=== PATIENT | female | born 1985 | race American Indian/Alaskan Native ===

== ENCOUNTER 2017-11-17 15:11 | Emergency (ER) | payer SELFPAY ==
[2017-11-17 16:06] VITALS: BP 110/62
[2017-11-17 17:46] LABS: HCG Qualitative,Urine Negative (Negative)
[2017-11-17 17:58] LABS: Bacteria,Urine 2+ /HPF (Negative); Bilirubin,Urine NEG (Negative); Blood,Urine LG (Negative); Color,Urine Amber (Yellow); Mucus,Urine 3+ /HPF; Sperm,Urine 1+ /HPF (NP); Urobilinogen,Urine < 2.0 mg/dL (<2.0)
[2017-11-17 18:04] LABS: RBC,Urine > 182.0 /HPF (0.0-6.0)
== END 2017-11-17 23:09 | disposition left against medical advice (07) ==
LOC: ED 15:11
DX: R11.11 Vomiting without nausea (principal); Z53.21 Procedure and treatment not carried out due to patient leaving prior to being seen by health care provider
CPT/HCPCS: 81001; 81025

== ENCOUNTER 2018-12-01 11:30 | Inpatient (IN) | payer BC, OTHER ==
[2018-12-02] MEDS ORDERED: BICITRA ORAL LIQD 30ML PO ONE ×2 (16:50→17:46)
[2018-12-02] MEDS ORDERED: METOCLOPRAMIDE 10 MG/2 ML INJ IV ONE ×2 (16:50→17:46)
[2018-12-02] MEDS ORDERED: EMLA CREAM 5 GM TP PRN (16:50)
[2018-12-02] MEDS ORDERED: FAMOTIDINE 20 MG/2 ML INJ IV ONE ×2 (16:50→17:46)
[2018-12-02] MEDS ORDERED: ceFAZolin/Water 2 GM/20 ML 2 GM/20 ML SYRINGE IV NR ×2 (17:00→18:00)
[2018-12-02] MEDS ORDERED: OXYTOCIN 20 UNIT/1000ML DRIP 20 UNITS/1,000 ML BAG IV SCH ×3 (17:00→23:48)
[2018-12-02] MEDS ORDERED: LACTATED RINGERS 1,000 ML IV SCH ×2 (17:00→18:00)
--- NOTE | 2018-12-02 17:08 | History and Physical Report ---
History of Present Illness Date of examination: 12/02/18 Date of admission: 12/02/18 16:33 Chief complaint: SROM History of present illness: Past History : 4 Term Births: 3 Premature Births: 0 Living Children: 3 Para: 3 Prev : 3 Prev. attempt? 0 Aborta: 0 Elect. Ab: 0 Spont. Ab: 0 Ectopics: 0 # 1 Delivery date: 2010 Weeks Gestation: term Delivery type: Delivery location: [place] Inf[place] Sex: Male weight: 7-0 Comments: maternal/ distress # 2 Delivery date: 2012 Weeks Gestation: term Delivery type: Delivery location: [place] Sex: Male weight: 7-0 Comments: scheduled repeat # 3 Delivery date: 2013 Weeks Gestation: term Delivery type: Delivery location: [place] Sex: Female weight: 7-0 Family History Summary: No Known Family History - Entered On: 07/22/2018 Social History: Patient is single Smoking History: Patient has never smoked. Past Medical History: Negative Past Medical History Past Surgical History: X 3 Past Medical History Surgery (Non-java web architect): X 3 Abnormal PAP: negative MING Exposure: negative Infertility: negative Uterine Anomaly: negative Uterine Surgery (not C/S): negative Other Gynecologic Problems: negative Social Hx: Patient is single Smoking History: Patient has never smoked. Infection History Hx of STD: none HIV Risk Eval: low risk Hepatitis B Risk Eval: low risk Personal hx. of genital herpes: no Partner hx. of genital herpes: no Rash, Viral, or Febrile illness since last LMP? no Varicella/Chicken Pox Status: Previous Disease TB Risk: no Genetic History ADVANCED MATERNAL AGE Congenital Heart Defect: Mom: no Dad: no Sarah Disease: Mom: no Dad: no Thalassemia Mom: no Dad: no Neural Tube Defect Mom: no Dad: no Down's Syndrome Mom: no Dad: no Eliezer-Sachs Mom: no Dad: no Sickle Cell Disease/Trait Mom: no Dad: no Hemophilia Mom: no Dad: no Muscular Dystrophy Mom: no Dad: no Cystic Fibrosis Mom: no Dad: no Amina Chorea Mom: no Dad: no Mental Retardation Mom: no Dad: no Fragile X Mom: no Dad: no Other Genetic/Chromosomal Disorder Mom: no Dad: no Child w/other defect Mom: no Dad: no Enviromental Exposures Xray Exposure: no Medication, drug, or alcohol use since LMP: no Chemical/Other Exposure: no Exposure to Cat Liter: no Hx of Parvovirus (Fifth Disease): no Occupational Exposure to Children: none Comments: works in a halfway Active Medications (reviewed today): VITAMINS TABLET ( VIT-FE FUMARATE-FA TABS) Current Allergies (reviewed today): No known allergies Past History - Obstetrical History Expected Date of Delivery: 12/11/18 Actual Gestation: 38 Week(s) 5 Day(s) : 4 Medications and Allergies Allergies Allergy/AdvReac Type Severity Reaction Status Date / Time No Known Allergies Allergy Verified 07/07/18 12:15 Active Meds: Active Medications Citric Acid/Sodium Citrate (Bicitra) 30 ml PO ONCE ONE Stop: 12/02/18 16:51 Famotidine (Pepcid) 20 mg IV ONCE ONE Stop: 12/02/18 16:51 Oxytocin/Sodium Chloride (Pitocin/Ns 20 Unit/1000ml Drip) 20 units in 1,000 mls @ 0 mls/hr IV TITR ELAINE Lactated Ringer's (Lactated Ringers) 1,000 mls @ 2,250 mls/hr IV PREOP ELAINE Stop: 12/03/18 17:27 Cefazolin Sodium (Ancef/Sterile Water 2 Gm/20 Ml) 2 gm in 20 mls @ 80 mls/hr IV PREOP NR; Protocol Lidocaine/Prilocaine (Emla) 1 applic TP ONCE PRN PRN Reason: for noble catheter insertion Metoclopramide HCl (Reglan) 10 mg IV ONCE ONE Stop: 12/02/18 16:51 Review of Systems All systems: negative Genitourinary: leakage of fluid - Physical Exam Breasts: Positive: deferred Cardiovascular: Regular rate Lungs: Positive: Normal air movement Abdomen: Positive: other Genitourinary (Female): Positive: perineal/vulvar lesions (skin tag (R) labia) Vagina: Positive: other (+pool) Anus/Rectum: Positive: normal perianal skin Extremities: Positive: normal Results All other labs normal. Assessment and Plan - Patient Problems (1) 38 weeks gestation of Current Visit: Yes Status: Acute (2) Maternal care due to uterine scar from previous surgery Current Visit: Yes Status: Acute Plan to address problem: Patient agrees to proceed with delivery today, declines sterilization. Risks and consents reviewed, she voiced understanding (3) PROM (premature rupture of membranes) Current Visit: Yes Status: Acute (4) Advanced maternal age (AMA) in Current Visit: Yes Status: Acute (5) Abnormal placenta Current Visit: Yes Status: Acute (6) Polyhydramnios Current Visit: Yes Status: Acute
[2018-12-02 18:20] LABS: Basophils % (Auto) 0.4 % (0.0-1.8); Eosinophils # (Auto) 0.1 K/mm3 (0.0-0.4); Eosinophils % (Auto) 1.3 % (0.0-4.3); Hematocrit 42.8 % (30.3-42.9); Hemoglobin 14.4 gm/dl (10.1-14.3); Lymphocytes # (Auto) 1.5 K/mm3 (1.2-5.4); Lymphocytes % (Auto) 15.5 % (13.4-35.0); Mean Corpuscular HGB Conc 34 % (30-34); Mean Corpuscular Volume 84 fl (79-97); Monocytes # (Auto) 0.8 K/mm3 (0.0-0.8); Monocytes % (Auto) 7.8 % (0.0-7.3); Platelet Count 143 K/mm3 (140-440); Red Blood Count 5.08 M/mm3 (3.65-5.03); Red Cell Distribution Width 12.9 % (13.2-15.2)
[2018-12-02 18:24] LABS: Bilirubin,Urine NEG (Negative); Blood,Urine NEG (Negative); Color,Urine Yellow (Yellow); Protein,Urine <15 mg/dL mg/dL (Negative); Urobilinogen,Urine < 2.0 mg/dL (<2.0)
[2018-12-02] MEDS ORDERED: NALOXONE 0.4 MG/1 ML INJ IV PRN ×2 (18:36→23:48)
[2018-12-02] MEDS ORDERED: ONDANSETRON 4 MG/2 ML INJ IV PRN ×2 (18:36→23:48)
[2018-12-02] MEDS ORDERED: diphenhydrAMINE 50 MG/ML VIAL IV PRN (18:36)
[2018-12-02] MEDS ORDERED: HYDROmorphone 1 MG/1 ML INJ IV PRN ×2 (18:36)
--- NOTE | 2018-12-02 18:47 | Anesthesia Consultation ---
Anesthesia Consult and Med Hx Date of service: 12/02/18 - Airway Anesthetic Teeth Evaluation: Good ROM Head & Neck: Adequate Mental/Hyoid Distance: Adequate Mallampati Class: Class II Intubation Access Assessment: Probably Good - Pulmonary Exam CTA: Yes - Cardiac Exam Cardiac Exam: RRR - Pre-Operative Health Status ASA Pre-Surgery Classification: ASA2 Proposed Anesthetic Plan: Spinal - Pulmonary Hx Smoking: No Hx Asthma: No Hx Respiratory Symptoms: No SOB: No COPD: No Home Oxygen Therapy: No Hx Pneumonia: No Hx Sleep Apnea: No - Cardiovascular System Hx Hypertension: No Hx Coronary Artery Disease: No Hx Heart Attack/AMI: No Hx Angina: No Hx Percutaneous Transluminal Coronary Angioplasty (PTCA): No Hx Cardia Arrhythmia: No Hx Pacemaker: No Hx Internal Defibrillator: No Hx Valvular Heart Disease: No Hx Heart Murmur: No Hx Peripheral Vascular Disease: No - Central Nervous System Hx Neuromuscular Disorder: No Hx Seizures: No CVA: No Hx Back Pain: No Hx Psychiatric Problems: No - Gastrointestinal Hx Ulcer: No Hx Gastroesophageal Reflux Disease: Yes - Endocrine Hx Renal Disease: No Hx End Stage Renal Disease: No Hx Cirrhosis: No Hx Liver Disease: No Hx Insulin Dependent Diabetes: No Hx Non-Insulin Dependent Diabetes: No Hx Thyroid Disease: No Hx Hypothyroidism: No Hx Hyperthyroidism: No - Hematic Hx Anemia: No Hx Sickle Cell Disease: No - Other Systems Hx Alcohol Use: No Hx Substance Use: No Hx Cancer: No Hx Obesity: No
--- NOTE | 2018-12-02 18:48 | Anesthesia Day of Surgery ---
Anesthesia Day of Surgery - Day of Surgery Patient Examined: Yes Patient H&P Reviewed: Yes Patient is NPO: Yes Beta Blockers: No Cardiac Clearance: No Pulmonary Clearance: No Randy's Test: N/A
[2018-12-02] MEDS ORDERED: DEXMEDETOMIDINE 200 MCG/2 ML VIAL IV ONE (19:20)
[2018-12-02] MEDS ORDERED: PHENYLEPHRINE/NS 1,000 MCG/10 ML SYRINGE (OR USE) IV ONE (20:02)
[2018-12-02] MEDS ORDERED: KETOROLAC 30 MG/1 ML INJ ONE (20:40)
[2018-12-02] MEDS ORDERED: ONDANSETRON 4 MG/2 ML INJ ONE (20:40)
--- NOTE | 2018-12-02 21:10 | Post Operative Note ---
Pre-op diagnosis: IUP@38, SROM, AMA, prev C/S Post-op diagnosis: same Procedure: LTCS Anesthesia: epidural Surgeon: PABLITO JHA Rn Imcu: JANESSA TOVAR Estimated blood loss: other (600mL) Pathology: list (placenta) Specimen disposition: to lab Condition: stable Disposition: PACU
[2018-12-02] MEDS ORDERED: WITCH HAZEL/ GLYCERIN PAD TP PRN (23:48)
[2018-12-02] MEDS ORDERED: PROMETHAZINE 25 MG RECT SUPP PR PRN (23:48)
[2018-12-02] MEDS ORDERED: ACETAMINOPHEN 325 MG TAB PO PRN (23:48)
[2018-12-02] MEDS ORDERED: LANOLIN/ZINC/DIMETHICONE (LANSINOH) 7 GM TP PRN (23:48)
[2018-12-02] MEDS ORDERED: MORPHINE 2 MG/1 ML INJ IV PRN (23:48)
[2018-12-02] MEDS ORDERED: ACETAMINOPHEN 650 MG RECT SUPP PR PRN (23:48)
[2018-12-02] MEDS ORDERED: MORPHINE 4 MG/1 ML INJ IV PRN (23:48)
[2018-12-03] MEDS: ceFAZolin/NS 1 GM/50 ML 1 GM/50 ML BAG IV SCH ×2 (02:41→09:32)
[2018-12-03] MEDS: KETOROLAC 30 MG/1 ML INJ IV SCH ×3 (02:54→16:26)
[2018-12-03] MEDS: D5W/LACTATED RINGERS 1,000 ML IV SCH ×2 (02:55→10:25)
[2018-12-03] MEDS ORDERED: TETANUS,DIPH,PERTUSS(ACELL) VACCINE 0.5 ML SYRINGE IM ONE (06:00)
--- NOTE | 2018-12-03 06:27 | Progress Note ---
Assessment and Plan - Patient Problems (1) delivery delivered Onset Date: ~12/03/18 Current Visit: Yes Status: Acute Plan to address problem: Pt resting No c/o voiced VSS FF @ umb Lochia mod Dressing D&I H&H pending Doing well s/p repeat c/s P: continue pathway Advance diet and activity as tolerated. Subjective - Subjective Date of service: 12/03/18 (pt in good spirits) Principal diagnosis: 12hr s/p section Patient reports: voiding normally, pain well controlled [place]: doing well Objective - Vital Signs Latest vital signs: Vital Signs Temp Temp Pulse Resp BP BP Pulse Ox 12/03/18 04:54 98.8 F 75 20 110/65 98 12/02/18 22:50 98.4 F 68 18 108/65 97 12/02/18 22:15 74 16 108/52 100 12/02/18 22:00 69 17 96/55 100 12/02/18 21:47 98.0 F 138 H 46 H 12/02/18 21:45 74 21 110/51 100 12/02/18 21:30 71 20 112/43 100 12/02/18 21:25 71 20 107/40 100 12/02/18 21:20 70 20 109/39 100 12/02/18 21:15 97.9 F 70 19 110/33 100 12/02/18 18:25 114 H 99 12/02/18 18:20 93 H 98 12/02/18 18:15 92 H 98 12/02/18 18:10 93 H 98 12/02/18 18:05 90 98 12/02/18 18:00 95 H 98 12/02/18 17:55 95 H 98 12/02/18 17:50 94 H 98 12/02/18 17:45 95 H 98 12/02/18 17:40 91 H 99 12/02/18 17:38 91 H 126/79 12/02/18 17:35 93 H 98 12/02/18 17:30 93 H 99 12/02/18 17:25 98 H 98 12/02/18 17:20 96 H 99 12/02/18 17:09 98.1 F 20 Intake and Output 12/02/18 12/02/18 12/03/18 14:59 22:59 06:59 Intake Total 1840 120 Output Total 500 600 Balance 1340 -480 Intake: IV 1800 Oral 120 Oral Amount (ml) 40 Enfamil [place] 40 Output: Urine 500 600 Indwelling Catheter 600 Uretheral ([place]) 100 Other: Total, Intake Amount 120 Total, Output Amount 600 # Voids Diaper 1 Weight 169 lb Estimated Blood Loss 600 Patient Weight 12/03/18 06:59 Weight 169 lb - Exam Breasts: Present: normal Cardiovascular: Present: Regular rate Lungs: Present: Normal air movement Abdomen: Present: normal appearance, soft Uterus: Present: normal, fundal height at umbilicus Extremities: Present: normal Incision: Present: normal, dry, intact, dressed - Labs Labs: Abnormal lab results 12/02/18 Range/Units 17:30 RBC 5.08 H (3.65-5.03) M/mm3 Hgb 14.4 H (10.1-14.3) gm/dl RDW 12.9 L (13.2-15.2) % [place] % (Auto) 7.8 H (0.0-7.3) % Seg Neutrophils % 75.0 H (40.0-70.0) %
[2018-12-03 09:57] LABS: Hematocrit 37.2 % (30.3-42.9); Hemoglobin 12.5 gm/dl (10.1-14.3)
--- NOTE | 2018-12-03 10:40 | Operative Report ---
PREOPERATIVE DIAGNOSES: Intrauterine at 38 weeks; spontaneous rupture of membrane, unknown amount of time; previous x 3; and advanced maternal age. POSTOPERATIVE DIAGNOSES: Intrauterine at 38 weeks; spontaneous rupture of membrane, unknown amount of time; previous x 3; and advanced maternal age. PROCEDURE: Low transverse section. SURGEON: Yokasta Spivey MD WELT TRIMMING MACHINE OPERATOR: Seamus Jacobo MD ANESTHESIA: Epidural. COMPLICATIONS: None. ESTIMATED BLOOD LOSS: 600 mL. ANESTHESIOLOGIST: Dr. Whitney. DESCRIPTION OF PROCEDURE: After risks, benefits, complications, consequences and alternatives of this procedure were discussed with the patient, she voiced the understanding and desired to proceed. She was taken to the OR, where epidural anesthesia was placed. She was placed in the left lateral tilt position and prepped and draped in the usual sterile fashion. Timeout was performed and once the appropriate level of the anesthesia was noted, a Pfannenstiel incision was made through a previous incision, which was incised and extended in a lateral direction. The fascia was incised and on dissecting the fascia laterally, no obvious evidence of rectus muscles was noted. The fascia was grasped with Mora clamps and elevated, the peritoneum that was attached to the fascia was carefully dissected away in both the superior and inferior direction, the midline was entered bluntly, an extra large Darien retractor was placed with the bladder blade in place, the vesicouterine fold was incised with a blunt dissection, the bladder flap was created, a transverse incision was made in the lower uterine segment and extended in a superior lateral direction with a finger fractionation. Minimum amount of a clear fluid was noted. was delivered from the complete breech position with spontaneous cry and excellent tone. Cord was doubly clamped and cut and was given to the resuscitation team present. The placenta was manually extracted and sent to pathology. The uterus was exteriorized and cleaned of any further products of conception or placental tissue. The incision was reapproximated using 0 Vicryl in a running and locking stitch followed by further suture of 0 Vicryl in interrupted [id number] fashion for hemostasis. Once hemostasis was noted, the uterus was allowed back in the pelvic cavity. Pelvis was irrigated with warm normal saline. The Darien retractor was removed and Tisseel was applied to the incision as well as Interceed was placed in the anterior aspect of the uterus. Once hemostasis was noted, as mentioned previously, no obvious evidence of the rectus muscles were noted. Therefore, peritoneum was reapproximated using 0 Vicryl in 3 interrupted stitches. Then, the fascia was reapproximated using 0 Vicryl in a simple running stitch. Once hemostasis was noted, the skin was reapproximated using 4-0 Vicryl in subcuticular manner. The patient tolerated the procedure well and was taken to recovery room in stable condition. [facility]# [id number] CHUCK/DANIS
[2018-12-03] MEDS ORDERED: FLU VACC QUAD 2019-20 (3 YR UP)/PF 60 MCG/0.5 ML SYRINGE IM ONE (12:00)
[2018-12-03] MEDS: oxyCODONE /ACETAMINOPHEN 5-325MG TAB PO PRN (13:49)
[2018-12-03] MEDS: MAGNESIUM HYDROXIDE (MOM) ORAL LIQD UDC PO PRN (16:53)
[2018-12-04] MEDS: oxyCODONE /ACETAMINOPHEN 5-325MG TAB PO PRN ×3 (00:23→22:26)
[2018-12-04] MEDS ORDERED: KETOROLAC 30 MG/1 ML INJ ONE (00:36)
[2018-12-04] MEDS: KETOROLAC 30 MG/1 ML INJ IV SCH (00:44)
[2018-12-04] MEDS: IBUPROFEN 800 MG TAB PO PRN ×3 (06:47→17:55)
--- NOTE | 2018-12-04 07:58 | Progress Note ---
Assessment and Plan patient doing well, getting up to shower. Incision dressed - rn to remove after shower. Pain well controlled. lochia scant, fundus firm, H&H 12.5/37.2. - Patient Problems (1) delivery delivered Onset Date: ~12/03/18 Current Visit: Yes Status: Acute Plan to address problem: Continue postop pathway encouraged advance in activity as tolerated encouraged continued . Subjective - Subjective Date of service: 12/04/18 Principal diagnosis: postop day #2 s/p repeat c/s Patient reports: appetite normal, voiding normally, pain well controlled, flatus, ambulating normally, no dizzy ambulation, no nauseated : doing well, nursing well Objective - Vital Signs Latest vital signs: Vital Signs Temp Pulse Resp BP BP Pulse Ox 12/04/18 01:08 98.5 F 79 20 113/66 100 12/03/18 20:19 98.2 F 90 20 105/58 99 12/03/18 15:59 98.0 F 67 20 104/61 99 12/03/18 12:55 98.5 F 69 20 104/61 98 12/03/18 08:27 98.8 F 69 20 110/65 97 Intake and Output 12/03/18 12/03/18 12/04/18 15:59 23:59 07:59 Intake Total 1057.5 120 360 Output Total 300 300 500 Balance 757.5 -180 -140 Intake: IV 937.5 D5lr 1,000 ml @ 125 mls/ 937.5 hr IV DIRECT ELAINE Rx#: [id number] Oral 120 120 360 Output: Urine 300 300 500 Void 300 300 500 Other: Total, Intake Amount 120 120 120 Total, Output Amount 300 300 500 # Voids Void 1 - Exam Breasts: Present: normal, Cardiovascular: Present: Regular rate Lungs: Present: Clear to auscultation, Normal air movement Abdomen: Present: normal appearance, soft Vulva: both: normal Uterus: Present: normal, firm, fundal height at umbilicus Extremities: Present: normal Deep Tendon Reflex Grade: Normal +2 Incision: Present: normal, dry, dressed
[2018-12-04] MEDS: MAGNESIUM HYDROXIDE (MOM) ORAL LIQD UDC PO PRN ×2 (14:29→22:42)
[2018-12-05 02:07] VITALS: BP 102/79
[2018-12-05] MEDS: IBUPROFEN 800 MG TAB PO PRN (04:49)
[2018-12-05] MEDS: oxyCODONE /ACETAMINOPHEN 5-325MG TAB PO PRN ×2 (07:01→12:29)
--- NOTE | 2018-12-05 08:27 | Discharge Summary ---
Providers - Providers Date of Admission: 12/02/18 16:33 Date of discharge: 12/05/18 Attending physician: JANESSA JACOBO 12/02/18 23:48 Consult to Actuarial Mathematician [CONS] Routine Reason For Exam: Primary care physician: JANESSA JACOBO Hospitalization Condition: Good Procedures: delivery Hospital course: Uncomplicated Disposition: DC-01 TO HOME OR SELFCARE - Discharge Diagnoses (1) 38 weeks gestation of Status: Resolved (2) Maternal care due to uterine scar from previous surgery Status: Acute (3) PROM (premature rupture of membranes) Status: Resolved (4) Advanced maternal age (AMA) in Status: Acute (5) Abnormal placenta Status: Acute (6) Polyhydramnios Status: Acute Core Measure Documentation - Palliative Care Palliative Care/ Comfort Measures: Not Applicable - Core Measures Any of the following diagnoses?: none Exam - Constitutional Vitals: Temp Pulse Resp BP Pulse Ox 98.8 F 76 18 102/79 100 12/05/18 00:00 12/05/18 00:00 12/05/18 00:00 12/05/18 00:00 12/04/18 01:08 General appearance: Present: no acute distress - Respiratory Respiratory effort: normal Respiratory: bilateral: CTA - Cardiovascular Rhythm: regular - Extremities Extremities: no ischemia, No edema - Abdominal General gastrointestinal: Present: soft, non-tender, normal bowel sounds Female genitourinary: Present: other (ff below umbilicus NT) - Integumentary Integumentary: Present: clear, warm, dry (incision intact, no s/s infection, steristrips placed) - Musculoskeletal Musculoskeletal: strength equal bilaterally - Psychiatric Psychiatric: appropriate mood/affect, intact judgment & insight, memory intact, cooperative Plan Activity: other (No sex, no driving, ambulate ~1mile on your property a day. Use your incentive spirometer every 1-2 hours while awake) Weight Bearing Status: Full Weight Bearing Diet: regular Wound: open to air, keep clean and dry Follow up with: JANESSA JACOBO MD [Primary Care Provider] - 12/09/18 9:15 am (Your post op appointment will be with Bobby Maguire NP in the [place] office, the circumcision for your son is also scheduled for the same day at [address] Jacobo) Prescriptions: Docusate Sodium [Colace] 100 mg PO BID PRN #60 capsule PRN Reason: Constipation Lidocain2.5%/Prilocai2.5% [Emla] 2 gm TP ONCE #1 tube Ferrous Sulfate [Feosol 325 MG tab] 325 mg PO QDAY #60 tablet Ibuprofen [Motrin 800 MG tab] 800 mg PO Q8HR PRN #60 tablet PRN Reason: Pain, Moderate (4-6) oxyCODONE /ACETAMINOPHEN [Percocet 5/325] 1 tab PO Q4HR #30 tab
[2018-12-05] MEDS ORDERED: MEASLES, MUMPS & RUBELLA 12,500 UNIT/0.5 ML VACCINE SUB-Q ONE (10:00)
[2018-12-06] MEDS ORDERED: FLU VACC QUAD 2019-20 (3 YR UP)/PF 60 MCG/0.5 ML SYRINGE IM ONE (12:00)
== END 2018-12-05 13:45 | disposition home or self-care (01) | DRG 788 ==
LOC: APU 12-02 16:33 → OB 12-02 23:10
PROVIDERS: ADMIT Obstetrics & Gynecology; ATTEND Obstetrics & Gynecology
PROC: 10D00Z1 Extraction of Products of Conception, Low, Open Approach (ICD-10-PCS; principal; 2018-12-02)
PROC: 3E0234Z Introduction of Serum, Toxoid and Vaccine into Muscle, Percutaneous Approach (ICD-10-PCS; 2018-12-03)
DX: O34.211 Maternal care for low transverse scar from previous cesarean delivery (principal); O42.92 Full-term premature rupture of membranes, unspecified as to length of time between rupture and onset of labor; O43.893 Other placental disorders, third trimester; O40.3XX0 Polyhydramnios, third trimester, not applicable or unspecified; O99.62 Diseases of the digestive system complicating childbirth; K21.9 Gastro-esophageal reflux disease without esophagitis; Z3A.38 38 weeks gestation of pregnancy; Z37.0 Single live birth; Z23 Encounter for immunization
CPT/HCPCS: 36415; 81001; 85014; 85018; 85025; 85027; 86592; 86850; 86900; 86901; 88307; 90715; G0378; J0690; J1885; J2270; J2370; J2405; J2590; J2765; J3490; J7120; J7121